=== PATIENT | female | born 1950 | race Hispanic/Latino ===

== ENCOUNTER 2019-01-03 14:49 | Outpatient (CLI) | payer MEDICARE ==
[2019-01-03 15:21] LABS: Basophils # (Auto) 0.1 K/mm3 (0.0-0.1); Basophils % (Auto) 0.8 % (0.0-1.8); Eosinophils % (Auto) 0.5 % (0.0-4.3); Hematocrit 40.9 % (30.3-42.9); Hemoglobin 13.1 gm/dl (10.1-14.3); Lymphocytes # (Auto) 2.3 K/mm3 (1.2-5.4); Lymphocytes % (Auto) 24.4 % (13.4-35.0); Mean Corpuscular HGB Conc 32 % (30-34); Mean Corpuscular Volume 85 fl (79-97); Monocytes # (Auto) 0.8 K/mm3 (0.0-0.8); Monocytes % (Auto) 8.4 % (0.0-7.3); Platelet Count 264 K/mm3 (140-440); Red Blood Count 4.81 M/mm3 (3.65-5.03); Red Cell Distribution Width 17.6 % (13.2-15.2)
[2019-01-03 15:54] LABS: Erythrocyte Sedimentation Rate 40 mm/Hr (0-20)
[2019-01-03 15:55] LABS: Alanine Aminotransferase 10 units/L (7-56); Albumin 3.9 g/dL (3.9-5); BUN/Creatinine Ratio 17; Blood Urea Nitrogen 15 mg/dL (7-17); Hemolysis Index 2
== END 2019-01-03 14:50 | disposition home or self-care (01) ==
LOC: LAB 14:49
PROVIDERS: ATTEND Specialist
DX: G43.711 Chronic migraine without aura, intractable, with status migrainosus (principal)
CPT/HCPCS: 36415; 80053; 85025; 85652

== ENCOUNTER 2019-03-15 13:14 | Outpatient (CLI) | payer MEDICARE | END 2019-03-15 13:15 | disposition home or self-care (01) | LOC: LAB 13:14 | PROVIDERS: ATTEND Specialist | DX: M31.6 Other giant cell arteritis (principal) | CPT/HCPCS: 36415; 85652 ==